=== PATIENT | female | born 1965 | race Two or more races ===

== ENCOUNTER 2025-08-05 10:38 | Inpatient (IN) | payer MEDICAID ==
[~2025-08-05] VITALS: Ht 160 cm; Wt 111.2 kg
[2025-08-05 00:19] VITALS: BP 134/72; PULSE 61; RESP 18; TEMP 97.4; O2SAT 98
--- NOTE | 2025-08-05 11:12 | ED.PDOC ---
Lisa. trauma (HPI) HPI Comments Cristina Gaitan is a 59-year-old female with PMHx of hypertension and DM2. The patient came to the ED with chief complain of 20 min ago she fell on ground level, face first. The patient reports hitting her face, nose, chest and bilateral hands, experiencing face pain, and bilateral wrist pain. The patient denies lost of consciousness, changes on vision or other trauma. In the ED the patient BP was 203/92mmHg, hydralazine was started, head ct and Xrays were ordered. 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 all [employer] HELPER Hx Family History Family History: Reviewed,noncontributory to illness Social History Smoker: Non-Smoker Alcohol: Denies ETOH Use Drugs: Denies Drug Use Lives In: Home Constitutional: denies: chills, diaphoresis, fatigue, fever, malaise, sweats, weakness, others EENTM: reports: nose pain (Due to trauma post fall); denies: blurred vision, double vision, ear bleeding, ear discharge, ear drainage, ear pain, ear ringing, eye pain, eye redness, hearing loss, mouth pain, mouth swelling, nasal discharge, nose bleeding, nose congestion, photophobia, tearing, throat pain, throat swelling, voice changes, others Respiratory: denies: cough, hemoptysis, orthopnea, SOB at rest, shortness of breath, SOB with excertion, stridor, wheezing, others Cardiovascular: reports: chest pain (started after fall); denies: dizzy spells, diaphoresis, Dyspnea on exertion, edema, irregular heart beat, left arm pain, lightheadedness, palpitations, PND, syncope, others Gastrointestinal: denies: abdomen distended, abdominal pain, blood streaked bowels, constipated, diarrhea, dysphagia, difficulty swallowing, hematemesis, melena, nausea, poor appetite, poor fluid intake, rectal bleeding, rectal pain, vomiting, others Genitourinary: denies: abnormal vagina bleeding, burning, dyspareunia, dysuria, flank pain, frequency, hematuria, incontinence, pain, , vagina discharge, urgency, others Neurological: denies: dizziness, fainting, headache, left sided numbness, left sided weakness, numbness, paresthesia, pre-existing deficit, right sided numbness, right sided weakness, seizure, speech problems, tingling, tremors, weakness, others Musculoskeletal: denies: back pain, gout, joint pain, joint swelling, muscle pain, muscle stiffness, neck pain, others Integumetry: denies: bruises, change in color, change in hair/nails, dryness, laceration, lesions, lumps, rash, wounds, others Allergic/Immunocompromised: denies: Difficulty Healing, Frequent Infections, Hives, Itching, others Hematologic/Lymphatic: denies: anemia, blood clots, easy bleeding, easy bruising, swollen glands, others Endocrine: denies: excessive hunger, excessive sweating, excessive thirst, excessive urination, flushing, intolerance to cold, intolerance to heat, unexplained weight gain, unexplained weight loss, others Psychiatric: denies: anxiety, bipolar disorder, depression, hopeless, panic disorder, schizophrenia, sleepless, suicidal, others Physical Exam General Appearance: Mild Distress HEENT: Normal ENT Inspection, Pharynx Normal, TMs Normal Neck: Full Range of Motion, Non-Tender, Normal, Normal Inspection Respiratory: Chest Non-Tender, Lungs Clear, No Accessory Muscle Use, No Respiratory Distress, Normal Breath Sounds Cardiovascular: No Edema, No JVD, No Murmur, No Gallop, Normal Peripheral Pulses, Regular Rate/Rhythm Breast Exam: Deferred Gastrointestinal: No Organomegaly, Non Tender, No Pulsatile Mass, Normal Bowel Sounds, Soft Genitalia: Deferred Pelvic: Deferred Rectal: Deferred Extremities: Other (Bilateral wrist tendernes, scrapes in palms. ) Neurologic: Alert, insurance adviser II-XII nml as Tested, No Motor Deficits, Normal Affect, Normal Mood, No Sensory Deficits Cerebellar Function: Normal Reflexes: Normal Skin: Dry, Lacerations (on nose bridge and palms ), Normal Color, Warm Lymphatic: No Adenopathy Was a procedure done? Was a procedure done?: No Differential Diagnosis Multiple Trauma: Closed Head Injury, Fractures (wrist fracture, ribs fracture, nose fracture), Abrasions Neck Injury: N/A X-Ray, Labs, Meds, VS Vital Signs Date Time Temp Pulse Resp B/P (MAP) Pulse Ox O2 Delivery O2 Flow Rate FiO2 08/05/25 17:36 93 18 166/93 (117) 97 08/05/25 16:30 88 15 169/88 (115) 96 08/05/25 15:30 98 14 178/89 (118) 96 08/05/25 15:17 87 13 192/84 08/05/25 14:55 70 17 99 Room Air* 0 21 08/05/25 14:47 88 25 203/92 08/05/25 14:30 81 11 208/95 (132) 97 08/05/25 13:30 77 17 192/84 (120) 99 08/05/25 13:08 227/92 08/05/25 12:20 97.7 70 17 229/92 (137) 99 97.7 08/05/25 10:57 63 08/05/25 10:43 98.7 75 15 215/102 98 98.7 199/148 Lab Test 08/05/25 16:22 08/05/25 14:10 08/05/25 13:16 Range/Units Troponin I High Sensitivity 11 12 10 </=34 ng/L Current Medications Medications (Trade) Dose Ordered Sig/Brianna Route Start Time Stop Time Status Last Admin Hydralazine HCl (Apresoline Injection) 10 mg ONCE ONCE IV 08/05/25 13:00 08/05/25 13:01 DC 08/05/25 13:08 Ondansetron HCl (Zofran) 4 mg ONCE ONCE IV 08/05/25 14:30 08/05/25 14:31 DC 08/05/25 14:45 Morphine Sulfate 2 mg ONCE ONCE IV 08/05/25 14:45 08/05/25 14:46 DC 08/05/25 14:47 X-Ray, Labs, Meds, VS Comment The patient was re-evaluated. The patient is still complaining about chest pain VS: BP: 166/93 Troponin 10 Time of 1ST Reevaluation: 17:49 Reevaluation 1ST: Unchanged Patient Education/Counseling: Diagnosis, Treatment, Prognosis, Need For Follow Up Family Education/Counseling: No Family Present Departure 1 Departure Time of Disposition: 18:13 Impression: Primary Impression: Hypertensive crisis Additional Impression: Blunt trauma of face Disposition: ADMITTED INPATIENT Admit to: Med Surg Condition: Good Comments Discussed plan of care with Dr. Gill Code status: Full code PCP: does not recall name Plan discussed with: Patient, the patient agrees with the admission plan. Critical Care Note Critical Care Time?: No Stability Stability form required: No Heart Score Heart Score: Heart Score Response (Comments) Value History Slightly Suspicious 0 EKG Normal 0 Age 45-64 1 Risk Factors 1 or 2 risk factors 1 Troponin Normal limit 0 Total 2 LUNA BECK RESIDENT Aug 05, 2025 11:12
--- NOTE | 2025-08-05 11:48 | DVH ---
CLINICAL HISTORY: Head trauma TECHNIQUE: Helical scanning was performed of the head from the skull base to the vertex. Multiplanar reconstructions were performed. This exam was performed according to our departmental dose optimizat ion program. Up-to-date CT equipment and radiation dose reduction techniques are utilized as appropri ate. CTDI 54.2 DLP 976 COMPARISON: XY FACIAL BONES COMPLETE on DOS: 08/05/25, CT-HEAD WO CONTRAST on DOS: 08/27/20, US-CAROTI D DPLX SCAN on DOS: 04/25/20, CT-HEAD WO CONTRAST on DOS: 04/25/20 FINDINGS: There is no evidence for acute intracranial hemorrhage, acute ischemic changes, mass, mass effect, or extra-axial fluid collection. There is no hydrocephalus or midline shift. There is no effacement of the cerebral sulci and basal subarachnoid cisterns. The palafox-white matter differentiation is well rowan ntained. Scattered white matter hypoattenuation is most compatible with a mild burden of nonspecific chronic s mall vessel ischemic change. 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 There is a small old left ce rebellar infarct. The imaged paranasal sinuses are clear. IMPRESSION: NO ACUTE INTRACRANIAL ABNORMALITY SEEN.
--- NOTE | 2025-08-05 11:59 | DVH ---
XY CHEST XRAY 1 VIEW, HISTORY: chest trauma post a fall. COMPARISON: XR CHEST 1 VIEW on DOS: 01/20/23, XR CHEST 2 VIEWS on DOS: 12/25/22, CH-CHEST 1V on DOS: XR CHEST 1 VIEW on DOS: 01/20/23, XR CHEST 2 VIEWS on DOS: 12/25/22, CH-CHEST 1V on DOS: 04/25/20 TECHNICAL DATA: 1 view of the chest was obtained. FINDINGS: Lines and tubes: None Cardiomediastinal silhouette: normal Pulmonary vasculature: normal Lung expansion: normal Lung airspace: normal Lung interstitium: normal Pleura: normal Pneumothorax: no Bones: Thoracic spinal and left clavicle hardware appears intact. Other: no IMPRESSION: No acute intrathoracic abnormality.
--- NOTE | 2025-08-05 12:01 | DVH ---
XY R WRIST 2 VIEW XRAY, INDICATION: Bilateral hand trauma post fall TECHNICAL DATA: Frontal , and lateral views were obtained of the right wrist. COMPARISON: XY L WRIST 2 VIEW XRAY on DOS: 08/05/25 FINDINGS: No fracture is identified. Joint spaces are maintained. Alignment is anatomic. Ulnar variance is nega tive. Soft tissues are within normal limits. IMPRESSION: No acute fracture or dislocation of the right wrist.
--- NOTE | 2025-08-05 12:02 | DVH ---
XY L WRIST 2 VIEW XRAY, INDICATION: Bilateral hand trauma post fall TECHNICAL DATA: Frontal and lateral views were obtained of the left wrist. COMPARISON: XY R WRIST 2 VIEW XRAY on DOS: 08/05/25 FINDINGS: No fracture is identified. Joint spaces are maintained. Alignment is anatomic. Ulnar variance is nega tive. Soft tissues are within normal limits. IMPRESSION: No acute fracture or dislocation of the left wrist.
--- NOTE | 2025-08-05 12:07 | DVH ---
XY FACIAL BONES COMPLETE, INDICATION: pain. TECHNICAL DATA: Frontal, vertex and lateral views were obtained of the skull. COMPARISON: None FINDINGS: No fracture or focal bone abnormality is demonstrated. The paranasal sinuses appear well aerated with no filling defect. The mastoid air cells are clear. IMPRESSION: No acute fracture radiographs of the skull.
[2025-08-05] MEDS: LABETALOL HCL 20 MG/4 ML VL IV ONE (12:33)
[2025-08-05] MEDS: hydrALAZINE HCL 20 MG/ML VL IV ONE ×2 (13:08→13:25)
[2025-08-05] MEDS ORDERED: MORPHINE SULFATE 4 MG/ML SYR/VIAL IM ONE (13:45)
[2025-08-05] MEDS: ONDANSETRON HCL 4 MG/2 ML VIAL IV ONE (14:45)
[2025-08-05] MEDS: MORPHINE SULFATE INJ 2 MG/ml SYRG IV ONE (14:47)
[2025-08-05 14:55] VITALS: PULSE 70; RESP 17; O2SAT 99
[2025-08-05] MEDS ORDERED: TEMAZEPAM 15 MG CAP PO PRN (19:15)
[2025-08-05] MEDS ORDERED: DEXTROSE (50%) 50ML SYRG IV PRN (19:15)
[2025-08-05] MEDS ORDERED: ONDANSETRON HCL 4 MG/2 ML VIAL IV PRN (19:15)
[2025-08-05] MEDS: HYDROcodone-ACET 5/325MG TAB PO PRN (19:49)
--- NOTE | 2025-08-05 19:56 | ECG ---
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
[2025-08-05 20:07] LABS: Chloride 101 mmol/L (98-107); Potassium 3.9 mmol/L (3.5-5.1); Sodium 139 mmol/L (136-145)
[2025-08-05 20:08] LABS: Anion Gap 11 (5-15); Calcium 9.2 mg/dL (8.7-10.4); Carbon Dioxide 27 mmol/L (20-31)
[2025-08-05 20:13] LABS: BUN/Creatinine Ratio 17.3 (10.0-20.0); Blood Urea Nitrogen 13 mg/dL (9-23)
[2025-08-05 20:14] LABS: Glucose 187 mg/dL (74-106)
[2025-08-05] MEDS: CARVEDILOL 12.5 MG TAB PO SCH (21:38)
[2025-08-05] MEDS: ATORVASTATIN 20 MG TAB PO SCH (21:39)
[2025-08-05] MEDS: GABAPENTIN 300 MG CAP PO SCH (21:39)
[2025-08-05] MEDS: ACCU-CHEK COMFORT CURVE STRIP VI SCH (21:45)
[2025-08-05] MEDS: InsuLIN REG 1unit/0.01ml Soln (100units/ml) SC SCH (21:49)
[2025-08-05 23:34] VITALS: BP 131/80; PULSE 73; RESP 16; O2SAT 94
--- NOTE | 2025-08-05 23:51 | DVHHP2 ---
History of Present Illness Reason for Visit: Fall injury History of Present Illness 59-year-old female presents for evaluation of possible facial injury post fall. Patient reports having a ground level fall where she tripped and landed on her face. On arrival to the emergency department she was noted to be hypertensive greater than 200. Denies headache or blurred vision. No chest pain or shortness for breath. Past Medical History Hypertension, diabetes mellitus, Past Surgical History Left clavicle surgery Family History Noncontributory Smoke: No ALCOHOL: none Drugs: None Lives: with Family Review of Systems Review of Systems Review of systems are currently negative otherwise addressed in HPI. Allergies: Coded Allergies: No Known Drug Allergy (Verified Allergy, Unknown, 08/05/25) Medications Current Medications Medications Dose Ordered Sig/Brianna Route Start Time Stop Time Status Last Admin Dose Admin Empaglifozin 10 mg DAILY PO 08/06/25 10:00 Carvedilol 12.5 mg Q12HR PO 08/05/25 22:00 08/05/25 21:38 12.5 MG Nifedipine 90 mg DAILY PO 08/06/25 10:00 Atorvastatin Calcium 40 mg HS PO 08/05/25 22:00 08/05/25 21:39 40 MG Gabapentin 300 mg TID PO 08/05/25 22:00 08/05/25 21:39 300 MG Diagnostic Test (Pha) 1 strip ACHS 08/05/25 22:00 08/05/25 21:45 1 STRIP Insulin Human Regular ACHS SC 08/05/25 22:00 08/05/25 21:49 4 UNITS Dextrose 50 ml UD PRN IV 08/05/25 19:15 Acetaminophen/ Hydrocodone Bitart 1 tab Q4HP PRN PO 08/05/25 19:15 08/05/25 19:49 1 TAB Temazepam 15 mg QHSP PRN PO 08/05/25 19:15 Ondansetron HCl 4 mg Q4HP PRN IV 08/05/25 19:15 Acetaminophen 650 mg Q6HP PRN PO 08/05/25 19:15 Clonidine HCl 0.1 mg Q6HP PRN PO 08/05/25 19:15 08/05/25 19:48 0.1 MG Exam Vital Signs Vital Signs Date Time Temp Pulse Resp B/P (MAP) Pulse Ox O2 Delivery O2 Flow Rate FiO2 08/05/25 23:34 73 16 131/80 (97) 94 08/05/25 14:55 Room Air* 0 21 08/05/25 12:20 97.7 97.7 Exam Gen: 59-year-old female in no apparent distress. Skin: Warm, dry, normal color and texture, no rash. HEENT: Normocephalic atraumatic, mucous membranes moist and pink. Neck: Cervical and supraclavicular nodes normal without enlargement, trachea is midline, thyroid gland is normal without masses. Pulmonary: Clear to auscultation and percussion bilaterally. Cardiac: Regular rate and rhythm. No murmur Abdomen: Soft, nontender, nondistended, bowel sounds present all 4 quadrants, no guarding, no rigidity, no organomegaly. Extremities: No cyanosis, clubbing, no edema Neuro: Cranial nerves II through XII grossly intact, normal affect and speech, no focal motor deficits. Labs/Xrays Labs Test 08/05/25 21:44 08/05/25 16:22 08/05/25 13:19 Range/Units POC Glucose 229 H 70-106 mg/dl Troponin I High Sensitivity 11 </=34 ng/L Sodium Level 139 136-145 mmol/L Potassium Level 3.9 3.5-5.1 mmol/L Chloride Level 101 98-107 mmol/L Carbon Dioxide Level 27 20-31 mmol/L Anion Gap 11 5-15 Blood Urea Nitrogen 13 9-23 mg/dL Creatinine 0.75 0.550-1.02 mg/dL Glomerular Filtration Rate Calc 93 >90 mL/min BUN/Creatinine Ratio 17.3 10.0-20.0 Serum Glucose 187 H 74-106 mg/dL Calcium Level 9.2 8.7-10.4 mg/dL SEPSIS Sepsis Screen Date sepsis recognized/suspect: Aug 05, 2025 Time Sepsis recognized/suspect: 1043 Recent Procedure: No On Antibiotic Therapy: No Respiratory Rate >20: No Heart Rate >90: No Temp<36 C (96.8 F) or >38.3 C: No SBP <90 or MAP <65 mmHG: No New Acute Mental Status Change: No Is the patient on CPAP, BIPAP,: No Physician Orders Empagliflozin (Jardiance) (08/06/25 10:00) Carvedilol Tablet (Coreg Tablet) (08/05/25 22:00) Nifedipine Er (Procardia Xl (Time-Releas (08/06/25 10:00) Atorvastatin (Lipitor) (08/05/25 22:00) Gabapentin Capsule (Neurontin Capsule) (08/05/25 22:00) Glucose Blood (Accu-Chek Comfort Curve T (08/05/25 22:00) Insulin R (Human) (Insulin R) (08/05/25 22:00) Dextrose 50% Syringe (08/05/25 19:15) Admit (08/05/25 19:04) Hydrocodone-Acet 5/325mg Tab ([place] 5/32 (08/05/25 19:15) Temazepam (Restoril) (08/05/25 19:15) Ondansetron Hcl (Zofran) (08/05/25 19:15) Cardiac Diet-2gna,Lofat,Lochol (08/06/25 Breakfast) Echo 2d Mode Cardiac Dop (08/05/25 19:04) Condition: Stable (08/05/25 19:04) Acetaminophen Tablet (Tylenol Tablet) (08/05/25 19:15) Bedrest With Bathroom Privileg (08/05/25 19:04) Clonidine Hcl Tablet (Catapres Tablet) (08/05/25 19:15) Vital Signs Date Time Temp Pulse Resp B/P (MAP) Pulse Ox O2 Delivery O2 Flow Rate FiO2 08/05/25 23:34 73 16 131/80 (97) 94 08/05/25 22:49 77 128/62 08/05/25 21:38 87 147/78 08/05/25 21:00 154/83 08/05/25 19:55 85 08/05/25 19:48 184/87 08/05/25 18:30 89 19 169/96 (120) 96 08/05/25 17:36 93 18 166/93 (117) 97 08/05/25 16:30 88 15 169/88 (115) 96 Medications Medications Dose Ordered Sig/Brianna Route Start Time Stop Time Status Last Admin Dose Admin Acetaminophen/ Hydrocodone Bitart 1 tab Q4HP PRN PO 08/05/25 19:15 08/05/25 19:49 1 TAB Atorvastatin Calcium 40 mg HS PO 08/05/25 22:00 08/05/25 21:39 40 MG Carvedilol 12.5 mg Q12HR PO 08/05/25 22:00 08/05/25 21:38 12.5 MG Clonidine HCl 0.1 mg Q6HP PRN PO 08/05/25 19:15 08/05/25 19:48 0.1 MG Diagnostic Test (Pha) 1 strip ACHS 08/05/25 22:00 08/05/25 21:45 1 STRIP Gabapentin 300 mg TID PO 08/05/25 22:00 08/05/25 21:39 300 MG Hydralazine HCl 10 mg ONCE ONCE IV 08/05/25 13:00 08/05/25 13:01 DC 08/05/25 13:08 10 MG Insulin Human Regular ACHS SC 08/05/25 22:00 08/05/25 21:49 4 UNITS Morphine Sulfate 2 mg ONCE ONCE IV 08/05/25 14:45 08/05/25 14:46 DC 08/05/25 14:47 2 MG Ondansetron HCl 4 mg ONCE ONCE IV 08/05/25 14:30 08/05/25 14:31 DC 08/05/25 14:45 4 MG Assessment/Plan Assessment/Plan Assessment Hypertensive urgency Blunt facial trauma Diabetes mellitus Morbid obesity Plan Admit the patient to [facility] to the hospitalist Echocardiogram pending As needed antihypertensives Resume home medications Pain management Continue treatment per orders. Plan discussed with: Patient My Orders Orders - MYCHAL BOB AGACNP Procedure Category Date Status Time Empagliflozin PHA 08/06/25 In Process (Jardiance) 10:00 Carvedilol Tablet PHA 08/05/25 In Process (Coreg Tablet) 22:00 Nifedipine Er PHA 08/06/25 In Process (Procardia Xl 10:00 Atorvastatin (Lipitor) PHA 08/05/25 In Process 22:00 Gabapentin Capsule PHA 08/05/25 In Process (Neurontin Capsule) 22:00 Glucose Blood PHA 08/05/25 In Process (Accu-Chek Comfort 22:00 Insulin R (Human) PHA 08/05/25 In Process (Insulin R) 22:00 Dextrose 50% Syringe PHA 08/05/25 In Process 19:15 Admit ADMIT 08/05/25 Transmitted 19:04 Hydrocodone-Acet PHA 08/05/25 In Process 5/325mg Tab ([place] 19:15 Temazepam (Restoril) PHA 08/05/25 In Process 19:15 Ondansetron Hcl PHA 08/05/25 In Process (Zofran) 19:15 Cardiac DIET 08/06/25 Transmitted Diet-2gna,Lofat,Lochol Breakfast Echo 2d Mode Cardiac US 08/05/25 Logged DOP 19:04 Condition: Stable COCO 08/05/25 In Process 19:04 Acetaminophen Tablet PHA 08/05/25 In Process (Tylenol Tablet) 19:15 Bedrest With Bathroom COCO 08/05/25 In Process Privileg 19:04 Clonidine Hcl Tablet PHA 08/05/25 In Process (Catapres Tablet) 19:15 Date of Service: Aug 05, 2025 Billing Provider: MYCHAL BOB Common Visit Codes: [id number] INP/OBS CARE (HIGH) MYCHAL BOB Aug 05, 2025 23:51
[2025-08-06] VITALS (9 sets, daily range): BP systolic 120–159; BP diastolic 44–96; PULSE 54–105; RESP 16–20; TEMP 97.3–98.3; O2SAT 90–98
[2025-08-06] MEDS ORDERED: CARV12.544 PO ×2 (04:45→04:49)
[2025-08-06] MEDS ORDERED: LISI-706 PO (04:49)
[2025-08-06] MEDS ORDERED: GABA-1250 PO (04:49)
[2025-08-06] MEDS ORDERED: METF-370 PO (04:49)
[2025-08-06] MEDS ORDERED: ATOR-507 PO (04:49)
[2025-08-06] MEDS ORDERED: EMPA1TAB PO (04:50)
[2025-08-06] MEDS: ACETAMINOPHEN 325 MG TAB PO PRN (05:58)
[2025-08-06] MEDS: EMPAGLIFLOZIN 10 MG TAB PO SCH (08:42)
--- NOTE | 2025-08-06 13:00 | DVHPN2 ---
Reviewed: Care Plan, H&P, Labs, Medications, Previous Orders, Radiology Changes from previous H/P or p: No Changes Objective Vitals Vital Signs Date Time Temp Pulse Resp B/P (MAP) Pulse Ox O2 Delivery O2 Flow Rate FiO2 08/06/25 09:00 98.1 62 18 159/96 (117) 96 98.1 08/06/25 08:00 Room Air* 0 21 Intake/Output Intake and Output 08/06/25 07:00 Intake Total 100 ml Balance 100 ml Intake Oral 100 ml # Voids 1 Medications Current Medications Medications Dose Ordered Sig/Brianna Route Start Time Stop Time Status Last Admin Dose Admin Empaglifozin 10 mg DAILY PO 08/06/25 10:00 08/06/25 08:42 10 MG Carvedilol 12.5 mg Q12HR PO 08/05/25 22:00 08/06/25 08:43 12.5 MG Nifedipine 90 mg DAILY PO 08/06/25 10:00 08/06/25 08:43 90 MG Atorvastatin Calcium 40 mg HS PO 08/05/25 22:00 08/05/25 21:39 40 MG Gabapentin 300 mg TID PO 08/05/25 22:00 08/06/25 05:58 300 MG Diagnostic Test (Pha) 1 strip ACHS 08/05/25 22:00 08/06/25 11:38 1 STRIP Insulin Human Regular ACHS SC 08/05/25 22:00 08/06/25 11:33 4 UNITS Dextrose 50 ml UD PRN IV 08/05/25 19:15 Acetaminophen/ Hydrocodone Bitart 1 tab Q4HP PRN PO 08/05/25 19:15 08/06/25 08:44 1 TAB Temazepam 15 mg QHSP PRN PO 08/05/25 19:15 Ondansetron HCl 4 mg Q4HP PRN IV 08/05/25 19:15 Acetaminophen 650 mg Q6HP PRN PO 08/05/25 19:15 08/06/25 05:58 650 MG Clonidine HCl 0.1 mg Q6HP PRN PO 08/05/25 19:15 08/05/25 19:48 0.1 MG Laboratory Results Laboratory Tests 08/05/25 13:19 Chemistry Test 08/05/25 13:19 Calcium Level 9.2 mg/dL (8.7-10.4) Labs and/or images reviewed: Labs reviewed by me, Image(s) reviewed by me Assessment/Plan Assessment/Plan Hypertensive urgency Blunt facial trauma Diabetes mellitus Morbid obesity Plan discussed with: Patient Date of Service: Aug 06, 2025 Billing Provider: CAROLINE DONATO MD Common Visit Codes: [id number] INP/OBS CARE(HIGH) CAROLINE DONATO MD Aug 06, 2025 13:00
[2025-08-07] VITALS (7 sets, daily range): BP systolic 123–145; BP diastolic 76–90; PULSE 63–67; RESP 16–19; TEMP 97.3–98.2; O2SAT 90–100
[2025-08-08 01:00] VITALS: BP 132/79; PULSE 66; RESP 17; TEMP 97.7; O2SAT 94
[2025-08-08 05:00] VITALS: BP 157/87; PULSE 72; RESP 17; TEMP 97.7; O2SAT 98
[2025-08-08 08:00] VITALS: PULSE 72; RESP 18; O2SAT 96
[2025-08-08] MEDS ORDERED: PANT40T PO (08:38)
[2025-08-08] MEDS ORDERED: NIFE1TAB30 PO (08:38)
--- NOTE | 2025-08-08 08:39 | DVHPN2 ---
Reviewed: Care Plan, H&P, Labs, Medications, Previous Orders, Radiology Changes from previous H/P or p: No Changes Objective Vitals Vital Signs Date Time Temp Pulse Resp B/P (MAP) Pulse Ox O2 Delivery O2 Flow Rate FiO2 08/08/25 05:00 97.7 72 17 157/87 (110) 98 97.7 08/07/25 20:00 Room Air* 0 21 Intake/Output Intake and Output 08/08/25 07:00 Intake Total 1240 ml Balance 1240 ml Intake Oral 1240 ml # Voids 8 Medications Current Medications Medications Dose Ordered Sig/Brianna Route Start Time Stop Time Status Last Admin Dose Admin Empaglifozin 10 mg DAILY PO 08/06/25 10:00 08/07/25 09:50 10 MG Carvedilol 12.5 mg Q12HR PO 08/05/25 22:00 08/07/25 20:08 12.5 MG Nifedipine 90 mg DAILY PO 08/06/25 10:00 08/07/25 09:50 90 MG Atorvastatin Calcium 40 mg HS PO 08/05/25 22:00 08/07/25 20:08 40 MG Gabapentin 300 mg TID PO 08/05/25 22:00 08/08/25 06:13 300 MG Diagnostic Test (Pha) 1 strip ACHS 08/05/25 22:00 08/08/25 06:14 1 STRIP Insulin Human Regular ACHS SC 08/05/25 22:00 08/08/25 06:17 3 UNITS Dextrose 50 ml UD PRN IV 08/05/25 19:15 Acetaminophen/ Hydrocodone Bitart 1 tab Q4HP PRN PO 08/05/25 19:15 08/08/25 06:17 1 TAB Temazepam 15 mg QHSP PRN PO 08/05/25 19:15 Ondansetron HCl 4 mg Q4HP PRN IV 08/05/25 19:15 Acetaminophen 650 mg Q6HP PRN PO 08/05/25 19:15 08/06/25 05:58 650 MG Clonidine HCl 0.1 mg Q6HP PRN PO 08/05/25 19:15 08/05/25 19:48 0.1 MG Laboratory Results Laboratory Tests 08/05/25 13:19 Labs and/or images reviewed: Labs reviewed by me, Image(s) reviewed by me Assessment/Plan Assessment/Plan Hypertensive urgency now controlled, continue home medications Coreg Jardiance lisinopril, added Procardia XL 90 mg p.o. daily, now controlled Blunt facial trauma Diabetes mellitus Morbid obesity GERD: Pantoprazole Hyperlipidemia: Lipitor Plan discussed with: Patient Date of Service: Aug 08, 2025 Billing Provider: CAROLINE DONATO MD Common Visit Codes: [id number] INP/OBS CARE(HIGH) CAROLINE DONATO MD Aug 08, 2025 08:39
--- NOTE | 2025-08-08 08:44 | DVHDS2 ---
Discharge Summary Date of Admission Aug 05, 2025 at 19:04 Date of Discharge: Aug 08, 2025 Admitting Diagnosis Uncontrolled blood pressure Wounds: Blunt facial trauma Labs/Diagnostic Data: Laboratory Results Test 08/08/25 06:12 08/05/25 16:22 08/05/25 13:19 POC Glucose 165 mg/dl (70-106) Troponin I High Sensitivity 11 ng/L (</=34) Sodium Level 139 mmol/L (136-145) Potassium Level 3.9 mmol/L (3.5-5.1) Chloride Level 101 mmol/L (98-107) Carbon Dioxide Level 27 mmol/L (20-31) Anion Gap 11 (5-15) Blood Urea Nitrogen 13 mg/dL (9-23) Creatinine 0.75 mg/dL (0.550-1.02) Glomerular Filtration Rate Calc 93 mL/min (>90) BUN/Creatinine Ratio 17.3 (10.0-20.0) Serum Glucose 187 mg/dL (74-106) Calcium Level 9.2 mg/dL (8.7-10.4) Other Laboratory Tests 08/05/25 13:19 Brief Hx & Hospital Course: 59-year-old female came in after a mechanical fall. Complained of blunt facial trauma CT head negative maxillofacial CT negative for any fractures blood pressure was high controlled with the home medications Coreg Jardiance lisinopril. Added Procardia XL. Blood pressure under control feels better discharged home. Prescription for Procardia and pantoprazole for possible GERD sent to the pharmacy she will continue all her home medications follow up with the primary Dr at [place]. Consults/Reason for consult None Operations or Procedures CT head Maxillofacial CT Condition at Discharge: Fair Final Diagnosis/Problems List Hypertensive urgency now controlled, continue home medications Coreg Jardiance lisinopril, added Procardia XL 90 mg p.o. daily, now controlled Blunt facial trauma Diabetes mellitus Morbid obesity GERD: Pantoprazole Hyperlipidemia: Lipitor Discharge Disposition: Home Discharge Instruct/Medications Diet: Cardiac 2g Na,low cholest Activity: Light activity Follow Up/Referral: Continue all your home medications including Coreg Lipitor Jardiance lisinopril Use new medications as prescribed Follow up with the primary Dr Medications: Pantoprazole Procardia Transmitted to pharmacy Scheduled Atorvastatin Calcium (Lipitor), 1 TAB PO DAILY, (Reported) Carvedilol (Carvedilol), 12.5 MG PO Q12HR, (Reported) Carvedilol (Carvedilol), 1 TAB PO BID, (Reported) Empagliflozin (Jardiance), 10 MG PO DAILY, (Reported) Gabapentin (Gabapentin), 600 MG PO DAILY, (Reported) Lisinopril & Hydrochlorothiazi (Zestoretic 20-12.5 mg), 1 TAB PO DAILY, (Reported) Metformin Hydrochloride (Metformin Hcl), 500 MG PO DAILY, (Reported) Nifedipine (Nifedipine Er), 60 MG PO DAILY Pantoprazole Sodium Sesquihydr (Pantoprazole Sodium), 40 MG PO BID 39 (Time taken for discharge summary 39 mts) Discharge Statement: "Patient was advised to return to the ER or call 911 if any headaches, dizziness, shortness of breath, chest pain, abdominal pain, bleeding, fevers, or worsening of medical condition. Patient was counseled about treatment plan, medications, possible side effects, patientverbalized understanding. All questions were answered to the best of my ability. This discharge took greater then 30 minutes in planning, reviewing documentation, counseling the patient, and discussing with other team members." ASSESSMENT ASSESSMENT Hospital Course Uneventful Assessment Hypertensive urgency now controlled, continue home medications Coreg Jardiance lisinopril, added Procardia XL 90 mg p.o. daily, now controlled Blunt facial trauma Diabetes mellitus Morbid obesity GERD: Pantoprazole Hyperlipidemia: Lipitor Date of Service: Aug 08, 2025 Billing Provider: CAROLINE DONATO MD Common Visit Codes: 63350-[id number] INP/OBS CARE(HIGH) CAROLINE DONATO MD Aug 08, 2025 08:44
[2025-08-08 09:00] VITALS: BP 162/90; PULSE 80; RESP 18; TEMP 97.7; O2SAT 94
[2025-08-08 11:02] VITALS: BP 132/87; PULSE 87; RESP 20; TEMP 98.6; O2SAT 96
--- NOTE | 2025-08-08 11:58 | DVHSR ---
APPROVED REPORT EXAM: Two-dimensional and M-mode echocardiogram with Doppler and color Doppler. Blood Pressure: 120/73 mmHg INDICATION HTN RISK FACTORS Obesity: Height: 5'3", Weight: 245 DIMENSIONS LVDd5.0 (3.8-5.7cm)LA (2D)4.1 (1.9-4.0cm)Aortic Root3.4 (2.0-3.7cm) LVDs3.3 (2.5-4.0cm)LA (MM) (1.9-4.0cm)Aortic Cusp Exc1.6 (1.5-2.0cm) EF (%) 55.0 (55-70%)Rt. Atrium (1.9-4.0cm)Asc. Aorta cm IVSd1.3 (0.7-1.1cm)RV (D) (1.8-2.4cm) PWd1.1 (0.7-1.1cm) Mitral Valve MitralMitral Stenosis E wave1.15m/sMV Mean GR.mmHg A wave1.11m/sMV Peak GR.mmHg E/A ratio1.02D MVAcm2 DECEL [id number] 1/2 [place] Aortic Valve Aortic ValveAortic Stenosis V11.02m/Yoan Mean GR.7mmHg V21.66m/Yoan Peak GR.11mmHg LVOT Diameter1.8 (1.8-2.4cm)Doppler AVA1.56cm2 Pulmonic Valve V20.92m/s Tricuspid Valve TR Velocity2.34m/s [id number] Conclusion Technically good study. Sinus rhythm. Concentric LVH with left atrial enlargement. Mild mitral annular calcification. Mild dilation of the sinuses of Valsalva with mild aortic scleros is. Left ventricular systolic performance is preserved at 55% with normal right ventricular function. Doppler reveals mild mitral regurgitation. Mild tricuspid regurgitation. No pericardial effusion masses or vegetations discernible.
== END 2025-08-08 12:44 | disposition home or self-care (01) | DRG 199 ==
LOC: EDBD 10:38 → ER 10:38 → OVERFLOW 19:04 → CENTRAL 23:50
PROVIDERS: ADMIT Family Medicine; ATTEND Family Medicine
DX: I16.0 Hypertensive urgency (principal); S09.8XXA Other specified injuries of head, initial encounter; E11.9 Type 2 diabetes mellitus without complications; E66.01 Morbid (severe) obesity due to excess calories; I10 Essential (primary) hypertension; K21.9 Gastro-esophageal reflux disease without esophagitis; E78.5 Hyperlipidemia, unspecified; W01.0XXA Fall on same level from slipping, tripping and stumbling without subsequent striking against object, initial encounter; Y93.89 Activity, other specified; Y92.89 Other specified places as the place of occurrence of the external cause; Y99.8 Other external cause status; Z79.899 Other long term (current) drug therapy; Z68.41 Body mass index [BMI] 40.0-44.9, adult
CPT/HCPCS: 36415; 70450; 71045; 73100; 80048; 82962; 84484; 93005; 93306; G0378; J1815; J2405